=== PATIENT | male | born 1995 | race Caucasian/White ===

== ENCOUNTER 2017-02-25 19:51 | Emergency (ER) | payer OTHER ==
[2017-02-25 20:06] VITALS: BP 125/70; PULSE 100; TEMP 98.8; BMI 18.6
[2017-02-25] MEDS ORDERED: SODIUM CHLORIDE 1,000 ML IV STA (20:40)
[2017-02-25 20:53] LABS: MCH 29.7 pg (25.7-33.7); MCHC 33.7 g/dl (32.0-35.9); MEAN CELL VOLUME 88.3 fl (80-96); MEAN PLT VOLUME 7.8 fl (7.5-11.1); PLATELET COUNT 215 K/MM3 (134-434); RDW 12.5 % (11.9-15.9); WHITE BLOOD COUNT 10.4 K/mm3 (4.0-10.0)
[2017-02-25 21:40] LABS: PLATELET ESTIMATE ADEQUATE (NORMAL)
[2017-02-25 21:56] LABS: ALBUMIN 3.8 g/dl (3.4-5.0); ALK PHOS 69 U/L (45-117); ANION GAP 6 (8-16); BILIRUBIN,TOTAL 0.8 mg/dL (0.2-1.0); CALCIUM 8.7 mg/dL (8.5-10.1); CO2 29 mmol/L (21-32); GLUCOSE,RANDOM 81 mg/dL (74-106); PHOSPHOROUS 3.1 mg/dL (2.5-4.9); SGOT/AST 35 U/L (15-37); SGPT/ALT 42 U/L (12-78); TOT PROT 6.9 g/dl (6.4-8.2)
[2017-02-25 22:05] LABS: URINE APPEARANCE CLEAR; URINE BILIRUBIN NEGATIVE (NEGATIVE); URINE BLOOD NEGATIVE (NEGATIVE); URINE COLOR YELLOW; URINE GLUCOSE (UA) NEGATIVE (NEGATIVE); URINE KETONE NEGATIVE (NEGATIVE); URINE LEUK ESTERASE NEGATIVE (NEGATIVE); URINE NITRITE NEGATIVE (NEGATIVE); URINE PROTEIN NEGATIVE (NEGATIVE); URINE UROBILINOGEN 4.0 E.U/dl E.U./dl (0.2-1.0)
--- NOTE | 2017-02-25 22:53 | PDOC ---
History of Present Illness - General Chief Complaint: Weakness Stated Complaint: WEAKNESS Time Seen by Provider: 02/25/17 20:21 History Source: Patient Exam Limitations: No Limitations - History of Present Illness Initial Comments: 02/25/17 22:48 21yo Male patient presents to ED c/o sweating, chills, hot flashes and weakness. Patient states he was recently seen and evaluated at [facility] for vomiting blood after putting on a Nicotine patch. Patient states he was treated and release with GI referral and Protonix daily. Patient now c/o decrease appetite, chills, weakness, and sweating. He denies any other complaints at this time. PCP- Kan Dorantes Timing/Duration: 1-3 hours Severity: mild Modifying Factors: worse with: cold therapy, eating, immobilization, medication , movement, rest, other Associated Symptoms: denies: denies symptoms, chest pain, cough, diaphoresis, fever/chills, headaches, loss of appetite, malaise, nausea/vomiting, rash, seizure, shortness of breath, syncope, weakness, other Aspirin Received prior to arrival: No: no aspirin today, unknown, 81 mg x 1, 81 mg x 2, 81 mg x 3, 81 mg x 4, 325 mg x 1, provided at home, provided by EMS, provided by ED [facility] Contraindications(Core Measure): No: Allergy, Other, Active Blding w/i 24 hrs., Plavix, Receiving Warfarin Beta Dilia Contraindications(Core Measure): No: Not Prescribed, Allergy, Bradycardia (HR <60bpm), Advanced Heart Block, Pacemaker, Other Past History - Travel Traveled outside of the country in the last 30 days: No Close contact w/someone who was outside of country & ill: No - Past Medical History Allergies/Adverse Reactions: Allergies Allergy/AdvReac Type Severity Reaction Status Date / Time No Known Allergies Allergy Verified 06/15/16 11:23 Home Medications: Ambulatory Orders NK [No Known Home Medication] 06/15/16 Other medical history: nicotine patch resulting in vomiting to point of bleeding - Psycho/Social/Smoking Cessation Hx Suicidal Ideation: No Smoking History: Former smoker Have you smoked in the past 12 months: Yes Information on smoking cessation initiated: No Hx Alcohol Use: No Drug/Substance Use Hx: No Substance Use Type: None Review of Systems - Review of Systems Able to Perform ROS?: Yes Is the patient limited Albanian proficient: No Constitutional: Yes: Chills, Weakness. No: Fever ABD/GI: No: Diarrhea, Nausea, Poor Appetite, Poor Fluid Intake, Vomiting : No: Burning, Dysuria, Flank Pain, Hematuria Musculoskeletal: No: Back Pain Integumentary: Yes: Sweating. No: Bruising, Erythema, Rash Neurological: No: Headache, Numbness, Seizure, Tingling, Tremors, Weakness, Unsteady Gait, Ataxia All Other Systems: Reviewed and Negative *Physical Exam - Vital Signs Last Vital Signs Temp Pulse Resp BP Pulse Ox 98.8 F 100 H 18 125/70 100 02/25/17 20:05 02/25/17 20:05 02/25/17 20:05 02/25/17 20:05 02/25/17 20:05 - Physical Exam General Appearance: Yes: Nourished, Appropriately Dressed. No: Apparent Distress, Disheveled, Mild Distress, Moderate Distress, Severe Distress, Alcohol on Breath HEENT: positive: EOMI, LAZARO, Normal ENT Inspection, Normal Voice, Symmetrical, TMs Normal, Pharynx Normal. negative: Pharyngeal Erythema, Tonsillar Exudate, Tonsillar Erythema, TM Bulging, TM Dull, TM Erythema Neck: positive: Trachea midline, Normal Thyroid, Supple. negative: Stridor, Lymphadenopathy (R), Lymphadenopathy (L) Respiratory/Chest: positive: Lungs Clear, Normal Breath Sounds. negative: Chest Tender, Respiratory Distress, Accessory Muscle Use, Labored Respiration, Rapid RR, Stridor, Wheezing Cardiovascular: positive: Regular Rhythm, Tachycardia Gastrointestinal/Abdominal: positive: Normal Bowel Sounds, Flat, Soft. negative : Distended, Guarding, Rebound, Tenderness Musculoskeletal: positive: Normal Inspection. negative: CVA Tenderness Extremity: positive: Normal Capillary Refill, Normal Inspection, Normal Range of Motion, Pelvis Stable. negative: Pedal Edema, Swelling, Calf Tenderness, Erythema, Inflammation Integumentary: positive: Normal Color, Dry, Warm Neurologic: positive: spare hand II-XII NML intact, Fully Oriented, Alert, Normal Mood/ Affect, Normal Response, Motor Strength / ED Treatment Course - LABORATORY CBC & Chemistry Diagram: 02/25/17 20:45 02/25/17 20:45 - ADDITIONAL ORDERS Additional order review: Laboratory Results 02/25/17 02/25/17 21:50 20:45 Sodium 137 Potassium 4.5 Chloride 102 Carbon Dioxide 29 Anion Gap 6 L BUN 10 Creatinine 1.0 Creat Clearance w eGFR > 60 Random Glucose 81 Calcium 8.7 Phosphorus 3.1 Magnesium 2.0 Total Bilirubin 0.8 AST 35 ALT 42 Alkaline Phosphatase 69 Total Protein 6.9 Albumin 3.8 Urine Color Yellow Urine Appearance Clear Urine pH 6.0 Urine Protein Negative Urine Glucose (UA) Negative Urine Ketones Negative Urine Blood Negative Urine Nitrite Negative Urine Bilirubin Negative Urine Urobilinogen 4.0 e.u/dl Ur Leukocyte Esterase Negative 02/25/17 20:45 RBC 4.93 MCV 88.3 MCHC 33.7 RDW 12.5 MPV 7.8 Neutrophils % 41.0 L Lymphocytes % 34.0 Monocytes % 11.0 H Eosinophils % 1.0 Basophils % 1.0 - Medications Given in the ED: ED Medications Discontinued Medications Generic Name Dose Route Start Last Admin Trade Name Freq PRN Reason Stop Dose Admin Sodium Chloride 1,000 mls @ 1,000 mls/hr 02/25/17 20:40 02/25/17 20:52 Normal Saline - IV 02/25/17 21:39 1,000 mls/hr ASDIR STA Administration *DC/Admit/Observation/Transfer Diagnosis at time of Disposition: Symptoms of dehydration - Discharge Dispostion Disposition: HOME Condition at time of disposition: Stable Admit: No - Patient Instructions Printed Discharge Instructions: DI for Dehydration -- Adult Additional Instructions: Follow up with your primary care provider as discussed. Stay hydrated, drink plenty fluids. Print Language: NAMIBIAN
[2017-02-25] MEDS ORDERED: OXYCODONE/APAP 5/325MG COMBO TABLET PO ONE (23:36)
[2017-02-25] MEDS ORDERED: OXYCODONE/APAP 5/325MG COMBO TABLET ONE (23:38)
== END 2017-02-25 23:37 | disposition home or self-care (01) ==
LOC: JER 19:51
PROC: 3E0337Z Introduction of Electrolytic and Water Balance Substance into Peripheral Vein, Percutaneous Approach (ICD-10-PCS; principal; 2017-02-25)
DX: E86.0 Dehydration (principal); Z87.891 Personal history of nicotine dependence
CPT/HCPCS: 36415; 80053; 81003; 83735; 84100; 85025; 96360; 99284-25

== ENCOUNTER 2018-12-03 13:34 | Emergency (ER) | payer OTHER ==
[2018-12-03 13:38] VITALS: BMI 19.2
[2018-12-03] MEDS ORDERED: KETOROLAC TROMETHAMINE 60 MG/2 ML VIAL IM ONE (13:41)
[2018-12-03] MEDS ORDERED: KETOROLAC TROMETHAMINE 60 MG/2 ML VIAL ONE (13:50)
[2018-12-03 13:53] VITALS: BP 120/74; PULSE 53; TEMP 98.5
--- NOTE | 2018-12-03 13:58 | PDOC ---
History of Present Illness - General Chief Complaint: Pain, Acute Stated Complaint: shoulder pain Time Seen by Provider: 12/03/18 13:35 History Source: Patient Exam Limitations: No Limitations - History of Present Illness Initial Comments: 12/03/18 13:50 Healthy 23y/o M with no sig pmh p/w 1-2 days of L shoulder/trapezius pain. Pt awoke yesterday morning with L trap pain, no injury/strain preceding it. During the day yesterday, noted discomfort in the scapular area worse with L shoulder adduction and Leftward neck rotation. no motor/sensory deficit, no rash/bruising , no sob/cp/palpitations. no h/o same, no fever/chills Past History - Past Medical History Allergies/Adverse Reactions: Allergies Allergy/AdvReac Type Severity Reaction Status Date / Time No Known Allergies Allergy Verified 12/03/18 13:34 Home Medications: Ambulatory Orders Naproxen 500 mg PO BID PRN #20 tablet 12/03/18 COPD: No CHF: No Other medical history: denies - Suicide/Smoking/Psychosocial Hx Smoking History: Never smoked Have you smoked in the past 12 months: Yes Hx Alcohol Use: No Drug/Substance Use Hx: No Substance Use Type: None Review of Systems - Review of Systems Constitutional: No: Chills, Fever, Night Sweats HEENTM: No: Throat Pain, Throat Swelling Respiratory: No: Cough, Shortness of Breath Cardiac (ROS): No: Chest Pain, Edema, Palpitations, Syncope ABD/GI: No: Nausea, Vomiting Musculoskeletal: Yes: Muscle Pain. No: Joint Pain Integumentary: No: Rash Neurological: No: Headache *Physical Exam - Vital Signs Last Vital Signs Temp Pulse Resp BP Pulse Ox 0/0 L 12/03/18 13:34 - Physical Exam Comments: 12/03/18 13:58 GENERAL: The patient is awake, alert, and fully oriented, in no acute distress holding l shoulder in adduction. HEAD: Normal with no signs of trauma. NECK: supple, no masses or JVD. Slightly limited L rotation 2/2 trap discomfort. focal reproducible ttp over midscapular region on the Left, no redness/swelling/bruising. CHEST: no ttp clavicle, CTAB with symmetric chest rise EYES: Pupils equal, round and reactive to light, extraocular movements intact, sclera anicteric, conjunctiva clear. EXTREMITIES: Normal range of motion, no edema. 5/5 flex/extend/adduction/ abduction L shoulder/elbow/wrist/hand, sensory intact distally, 2+ distal pulses. NEUROLOGICAL: Normal speech, normal gait. PSYCH: Normal mood, normal affect. SKIN: Warm, Dry, normal turgor, no rashes or lesions noted. Moderate Sedation - Procedure Monitoring Vital Signs: Procedure Monitoring Vital Signs Temperature Pulse Rate Respiratory Rate Blood Pressure 0/0 L 12/03/18 13:34 O2 Sat by Pulse Oximetry (%) Medical Decision Making - Medical Decision Making 12/03/18 14:01 healthy 23y/o M with atraumatic L trapezius strain, nvi and without evidence of acute bony pathology. no indication for emergent imaging trial of nsaid, discharge *DC/Admit/Observation/Transfer Diagnosis at time of Disposition: Strain of left trapezius muscle Qualifiers: Encounter type: initial encounter Qualified Code(s): S46.812A - Strain of other muscles, fascia and tendons at shoulder and upper arm level, left arm, initial encounter - Discharge Dispostion Disposition: HOME Condition at time of disposition: Stable - Prescriptions Prescriptions: Naproxen 500 mg PO BID PRN #20 tablet PRN Reason: Pain - Referrals Referrals: Gianni Barlow DO [Staff Physician] - - Patient Instructions Printed Discharge Instructions: DI for Muscle Strain, Whiplash Additional Instructions: Activity as tolerated. Stay hydrated. naproxen as prescribed twice daily (with food) for 3-4 days, then as needed for pain. Continue your medications as previously prescribed by your physician. You should follow up with an orthopedic as needed regarding today's emergency department visit. Return to the emergency department for any new or concerning symptoms, particularly intolerable pain, numbness/weakness, fever/chills, trouble breathing. - Post Discharge Activity
== END 2018-12-03 14:16 | disposition home or self-care (01) ==
LOC: FER 13:34
PROC: 3E0233Z Introduction of Anti-inflammatory into Muscle, Percutaneous Approach (ICD-10-PCS; principal; 2018-12-03)
DX: S46.812A Strain of other muscles, fascia and tendons at shoulder and upper arm level, left arm, initial encounter (principal); X58.XXXA Exposure to other specified factors, initial encounter; Y93.89 Activity, other specified; Y92.89 Other specified places as the place of occurrence of the external cause
CPT/HCPCS: 96372; 99281-25

== ENCOUNTER 2019-02-25 15:16 | Emergency (ER) | payer OTHER | END 2019-02-25 17:07 | disposition home or self-care (01) | LOC: FER 15:16 ==

== ENCOUNTER 2019-07-22 16:43 | Emergency (ER) | payer OTHER ==
--- NOTE | 2019-07-22 16:46 | PDOC ---
Attending Attestation - Resident Resident Name: YuanGael - ED Attending Attestation I have performed the following: I have examined & evaluated the patient, The case was reviewed & discussed with the resident, I agree w/resident's findings & plan, Exceptions are as noted - HPI HPI: 07/22/19 17:34 Superficial laceration distal pulp thumb, involving minimal amount of the distal nail. No proximity to the joint. No open wound, no deep structures including bone or involved. - Physicial Exam PE: 07/22/19 17:35 As noted above. No bleeding. Wound edges are naturally well approximated, as by the edges of the nail laceration. - Medical Decision Making 07/22/19 17:35 Assessment: Superficial laceration of the distal pulp and distal nail. Wound edges well approximated. Plan: Wound was cleaned and dressed by Dr. Jones. Wound care instructions were furnished. Follow-up if sign of infection or recurrent bleeding. Patient in no pain or other distress at discharge.
--- NOTE | 2019-07-22 17:02 | PDOC ---
History of Present Illness - General Chief Complaint: Laceration Stated Complaint: LACERATION LEFT THUMB THROUGH NAIL Time Seen by Provider: 07/22/19 16:44 History Source: Patient - History of Present Illness Initial Comments: 07/22/19 17:03 Mr. 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 He reports that the knife slipped while cutting and caught part of his L thumb fingertip and nail. He reports that his coworker was very concerned and that he did not look closely at the injury before wrapping it and presenting to the ED, concerned that he had cut off a large piece of flesh. He rates the pain a 3/10 at rest, 5/10 while the finger is pressed on. He did not take any medication before arrival and has no known drug allergies. Past History - Past Medical History Allergies/Adverse Reactions: Allergies Allergy/AdvReac Type Severity Reaction Status Date / Time No Known Allergies Allergy Verified 07/22/19 16:44 Home Medications: Ambulatory Orders NK [No Known Home Medication] 07/22/19 COPD: No CHF: No - Psycho Social/Smoking Cessation Hx Smoking History: Current every day smoker Have you smoked in the past 12 months: Yes Number of Cigarettes Smoked Daily: 6 'Breaking Loose' booklet given: 02/25/19 Hx Alcohol Use: No Drug/Substance Use Hx: No Substance Use Type: None Review of Systems - Review of Systems Able to Perform ROS?: Yes Comments:: 07/22/19 17:20 ROS: GENERAL/CONSTITUTIONAL: No fever or chills. No weakness. HEAD, EYES, EARS, NOSE AND THROAT: No change in vision. No ear pain or discharge. No sore throat. CARDIOVASCULAR: No chest pain or shortness of breath RESPIRATORY: No cough, wheezing, or hemoptysis. GASTROINTESTINAL: No nausea, vomiting, diarrhea or constipation. GENITOURINARY: No dysuria, frequency, or change in urination. MUSCULOSKELETAL: No joint or muscle swelling or pain. No neck or back pain. SKIN: No rash NEUROLOGIC: No headache, vertigo, loss of consciousness, or change in strength/ sensation. ENDOCRINE: No increased thirst. No abnormal weight change HEMATOLOGIC/LYMPHATIC: No anemia, easy bleeding, or history of blood clots. ALLERGIC/IMMUNOLOGIC: No hives or skin allergy. *Physical Exam - Physical Exam Comments: 07/22/19 17:21 PE: GENERAL: Awake, alert, and fully oriented, in no acute distress HEAD: No signs of trauma, normocephalic, atraumatic EYES: PERRLA, EOMI, sclera anicteric, conjunctiva clear ENT: Auricles normal inspection, hearing grossly normal, nares patent, oropharynx clear without exudates. Moist mucosa NECK: Normal ROM, supple, no lymphadenopathy, JVD, or masses LUNGS: No distress, speaks full sentences, clear to auscultation bilaterally HEART: Regular rate and rhythm, normal S1 and S2, no murmurs, rubs or gallops, peripheral pulses normal and equal bilaterally. ABDOMEN: Soft, nontender, normoactive bowel sounds. No guarding, no rebound. No masses EXTREMITIES : Small superficial laceration on tip of L thumb, approximated well. Nail cracked, no active bleeding. Normal range of motion, no edema. No clubbing or cyanosis NEUROLOGICAL: Cranial nerves II through XII grossly intact. 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 Plan: Wound soak Bacitracin Gauze to cover PCP follow up Dispo: Home pending wound care --- Patient discharge home with PCP follow up. Wound care and management discussed after cleaning/dressing injury. Discharge - Discharge Information Problems reviewed: Yes Clinical Impression/Diagnosis: Laceration of finger Qualifiers: Encounter type: initial encounter Finger: thumb Damage to nail status: with damage Foreign body presence: without foreign body Laterality: left Qualified Code(s): S61.112A - Laceration without foreign body of left thumb with damage to nail, initial encounter Condition: Stable Disposition: HOME - Admission No - Follow up/Referral - Patient Discharge Instructions Patient Printed Discharge Instructions: DI for Laceration Repair -- Finger Additional Instructions: You were seen in the ER after cutting your finger. We examined and cleaned the wound, applied an antibiotic ointment called bacitracin, and wrapped the finger. Keep that thumb dry for the next 3 days. Follow up with your primary care provider as soon as possible, within the next two weeks. Please return to the ER if you lose sensation in the thumb, notice that it is becoming increasingly red and painful, or notice pus or other drainage from the wound. - Post Discharge Activity
[2019-07-22 18:10] VITALS: BP 112/71; PULSE 81; TEMP 98.1; BMI 19.9
== END 2019-07-22 17:18 | disposition home or self-care (01) ==
LOC: FER 16:43
DX: S61.112A Laceration without foreign body of left thumb with damage to nail, initial encounter (principal); W26.0XXA Contact with knife, initial encounter; Y93.G1 Activity, food preparation and clean up; Y92.511 Restaurant or cafe as the place of occurrence of the external cause; Y99.0 Civilian activity done for income or pay; F17.210 Nicotine dependence, cigarettes, uncomplicated
CPT/HCPCS: 99282-25